=== PATIENT | female | born 1960 | race Caucasian/White ===

== ENCOUNTER 2016-12-16 01:16 | Emergency (ER) | payer MEDICAID ==
[~2016-12-16] VITALS: Ht 162.6 cm; Wt 100.0 kg
[~2016-12-16 01:16] MED LIST: COUM10TA PO; FOLI1TAB PO; MESA800 PO; METO10TA PO; ONDAN4 PO; PRED20 PO; SULF500T35 PO
[2016-12-16] MEDS ORDERED: MORPHINE SULFATE 4 MG/ML INJ IV PUSH ONE ×2 (01:30→03:30)
[2016-12-16] MEDS ORDERED: ONDANSETRON HCL 4 MG/2 ML VIAL IV PUSH ONE (01:30)
--- NOTE | 2016-12-16 01:30 | PD ---
HPI Chief Complaint: right leg pain Time Seen by Provider: 01:20 Travel History International Travel<30 days: No Contact w/Intl Traveler<30days: No Traveled to known affect area: No History of Present Illness HPI 56-year-old female presents via EMS for evaluation of right calf pain. The patient reports a history of ulcerative colitis for which she was on prednisone for 1.5 years. She weaned herself off the prednisone 2 months ago. 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 Lucero about this issue. Secondary to the avascular necrosis she tends to favor her right leg. She reports over the past week she has been having pain in her right calf. She describes it as an aching pain which is constant but worse with walking. She feels that the calf is swollen as well. She denies any trauma to the right calf. She denies any pain in the right ankle, the right foot, the right knee, the right thigh, the right hip. 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 She has tried using hydrocodone for pain with only mild relief. She reports chronic pain in her left hip, left proximal thigh. She is attempted to get an outpatient MRI ordered by Dr. Lucero but had difficulty lying still for it. No other complaints. PFSH Past Medical History Hx Anticoagulant Therapy: Yes Cancer: No Cardiovascular Problems: No Diminished Hearing: No Deep Vein Thrombosis: Yes Endocrine: No Gastrointestinal Disorders: Yes (ulcerative colitis) Genitourinary: No Immune Disorder: Yes (ulcerative colitis ) Musculoskeletal: No Neurologic: No Psychiatric: No Reproductive: No Respiratory: No Menopausal: Yes Ovarian Cysts: Yes Past Surgical History Gynecologic Surgery: Yes (right ovary/ right fallopian tube) Hysterectomy: Yes (STILL HAS UTERUS, BUT HAD SALPINGOOOPHORECTOMY R) Pacemaker: No Other Surgery: Yes Social History Alcohol Use: No Tobacco Use: No Substance Use: No Allergies-Medications (Allergen,Severity, Reaction): Coded Allergies: Latex (Verified Allergy, Intermediate, rash, 02/08/16) *MDRO Multi-Drug Resistant Organism (Verified Allergy, Unknown, 02/08/16) C-diff 11/2013 Codeine (Verified Adverse Reaction, Unknown, 02/08/16) Penicillin (Verified Adverse Reaction, Unknown, 02/08/16) Reported Meds & Prescriptions Reported Meds & Active Scripts Active Zofran (Ondansetron HCl) 4 Mg Tab 4 Mg PO Q6HR PRN Percocet (Oxycodone-Acetaminophen) 5-325 mg Tab 1 Tab PO Q6H PRN Reported Asacol HD (Mesalamine) 800 Mg Tab 800 Mg PO TID Swallow whole. Take on an empty stomach. Coumadin (Warfarin) 10 Mg Tab 10 Mg PO DAILY Coumadin (Warfarin) 10 Mg Tab 15 Mg PO DAILY Review of Systems Except as stated in HPI: all other systems reviewed are Neg Physical Exam Narrative GENERAL: Well-nourished female who appears uncomfortable. SKIN: Warm and dry. HEAD: Atraumatic. Normocephalic. EYES: Pupils equal and round. No scleral icterus. No injection or drainage. ENT: No nasal bleeding or discharge. Mucous membranes pink and moist. NECK: Trachea midline. No JVD. CARDIOVASCULAR: Regular rate and rhythm. No murmur appreciated. RESPIRATORY: No accessory muscle use. Clear to auscultation. Breath sounds equal bilaterally. GASTROINTESTINAL: Abdomen soft, non-tender, nondistended. MUSCULOSKELETAL: No obvious deformities. There is no lower extremity pitting edema. The patient has generalized tenderness to palpation to the right calf. The compartments of the right calf are soft with no evidence of compartment syndrome. 2+ dorsalis pedis and posterior tibial pulses. There is no tenderness to palpation to the right thigh, the right hip, right knee, right ankle, right foot. NEUROLOGICAL: Awake and alert. No obvious cranial nerve deficits. Motor grossly within normal limits. Normal speech. Data Data Last Documented VS Vital Signs Date Time Temp Pulse Resp B/P Pulse Ox O2 Delivery O2 Flow Rate FiO2 12/16/16 03:04 16 12/16/16 01:37 98.4 95 192/98 99 Orders Tibia/Fibula (Ap/Lat) (12/16/16 ) Us Leg Venous Doppler (12/16/16 01:26) Iv Access Insert/Monitor (12/16/16 01:26) Prothrombin Time / Inr (Pt) (12/16/16 01:26) Complete Blood Count With Diff (12/16/16 01:26) Basic Metabolic Panel (Bmp) (12/16/16 01:26) Morphine Inj (Morphine Inj) (12/16/16 01:30) Ondansetron Inj (Zofran Inj) (12/16/16 01:30) Morphine Inj (Morphine Inj) (12/16/16 03:30) Labs Laboratory Tests Test 12/16/16 02:00 White Blood Count 8.1 TH/MM3 Red Blood Count 4.45 MIL/MM3 Hemoglobin 13.1 GM/DL Hematocrit 38.1 % Mean Corpuscular Volume 85.6 FL Mean Corpuscular Hemoglobin 29.5 PG Mean Corpuscular Hemoglobin 34.5 % Concent Red Cell Distribution Width 14.0 % Platelet Count 268 TH/MM3 Mean Platelet Volume 8.8 FL Neutrophils (%) (Auto) 76.0 % Lymphocytes (%) (Auto) 15.4 % Monocytes (%) (Auto) 6.2 % Eosinophils (%) (Auto) 1.8 % Basophils (%) (Auto) 0.6 % Neutrophils # (Auto) 6.1 TH/MM3 Lymphocytes # (Auto) 1.2 TH/MM3 Monocytes # (Auto) 0.5 TH/MM3 Eosinophils # (Auto) 0.1 TH/MM3 Basophils # (Auto) 0.0 TH/MM3 CBC Comment DIFF FINAL Differential Comment Prothrombin Time 31.8 SEC Prothromb Time International 2.8 RATIO Ratio Sodium Level 140 MEQ/L Potassium Level 4.0 MEQ/L Chloride Level 105 MEQ/L Carbon Dioxide Level 27.7 MEQ/L Anion Gap 7 MEQ/L Blood Urea Nitrogen 18 MG/DL Creatinine 0.76 MG/DL Estimat Glomerular Filtration 78 ML/MIN Rate Random Glucose 110 MG/DL Calcium Level 8.9 MG/DL MDM Medical Decision Making Medical Screen Exam Complete: Yes Emergency Medical Condition: Yes Medical Record Reviewed: Yes Interpretation(s) CBC, BMP unremarkable, INR 2.8 Right leg ultrasound negative Tibia-fibula reveals mild degenerative changes of the right knee joint otherwise unremarkable Differential Diagnosis Right leg muscle strain, fracture, DVT, compartment syndrome, arterial occlusion , peripheral neuropathy, radiculopathy Narrative Course 56-year-old female with history of avascular necrosis left hip with resultant gait disturbance in which she favors her right leg presents now with increased pain in the right calf for the past week. On examination she has tenderness to palpation in the right calf but the compartments of the calf are soft with no evidence of a compartment syndrome, no evidence for hematoma. There is no lower extremity edema. She does have a history of DVT, on Coumadin. She reports that there has been difficulty regulating her INR levels. We will check her INR and basic lab work. X-ray of the right tibia/fibula and right leg ultrasound will be ordered. The patient will be given pain medication. The patient's lab work and imaging studies have been reviewed and found to be reassuring. Her INR is therapeutic at 2.8. Her right leg ultrasound and x-ray are normal. d/w my attending who agrees with plan. At this point in time the plan is to treat the patient doesn't outpatient with pain medicine. She is not currently using anything for pain control as an outpatient. She has an appointment with her primary care physician in 3 days and we discussed possibly having her follow up with pain management versus referral to a different orthopedist. She is also encouraged to use a walker at home as needed and she has a walker. She understands to return for any new or worsening symptoms. She is stable for discharge. Diagnosis Primary Impression: Right leg pain Additional Instructions: Follow-up with your primary care physician as scheduled in 3 days. Pain medication as needed. Do not drive or drink alcohol when taking this medication. Use walker as needed. Return for any emergent medical conditions. Med/Other Pt SpecificInfo: Prescription(s) given Scripts Ondansetron (Zofran)4 Mg Tab4 Mg PO Q6HR PRN (NAUSEA OR VOMITING) #15 TAB Ref 0 Prov:Teddy Levi MD 12/16/16 Oxycodone-Acetaminophen (Percocet)5-325 mg Tab1 Tab PO Q6H PRN (PAIN) #15 TAB Ref 0 Prov:Teddy Levi MD 12/16/16 Disposition: 01 DISCHARGE HOME Condition: Stable Manolo Rayo Dec 16, 2016 01:30 Manolo Rayo Dec 16, 2016 01:30
[2016-12-16 01:37] VITALS: BP 192/98; PULSE 95; RESP 16; TEMP 98.4; O2SAT 99
[2016-12-16] MEDS ORDERED: ASAC800T PO (01:40)
[2016-12-16] MEDS ORDERED: COUM10TA PO (01:40)
--- NOTE | 2016-12-16 02:11 | RADRPT ---
EXAM DATE/TIME: 12/16/2016 01:38 [facility] COMPARISON: No previous studies available for comparison. INDICATIONS : Right leg pain with no known trauma. MEDICAL HISTORY : Arthritis. SURGICAL HISTORY : None. ENCOUNTER: Initial ACUITY: 1 day PAIN SCORE: 10/10 LOCATION: Right leg FINDINGS: Two view examination of the right tibia demonstrates no evidence of fracture or dislocation. Bony mi neralization is normal. The soft tissue structures are intact. There is mild degenerative changes at the knee joint. CONCLUSION: Mild primary degenerative changes of the knee joint. Otherwise, unremarkable exam for patient's age. Rogers Wise MD on December 16, 2016 at 2:08 Board Certified Radiologist. This report was verified electronically.
[2016-12-16 02:16] LABS: AUTOMATED NEUTROPHIL # 6.1 TH/MM3 (1.8-7.7); BASOPHIL % 0.6 % (0.0-2.0); EOSINOPHIL # 0.1 TH/MM3 (0-0.4); EOSINOPHIL % 1.8 % (0.0-4.0); HEMATOCRIT 38.1 % (35.0-46.0); HEMO FLAGS DIFF FINAL; LYMPH % 15.4 % (9.0-44.0); LYMPHOCYTE # 1.2 TH/MM3 (1.0-4.8); MEAN CELL VOLUME 85.6 FL (80.0-100.0); MEAN CORPUSCULAR HEMOGLOBIN 29.5 PG (27.0-34.0); MEAN CORPUSCULAR HGB CONC 34.5 % (32.0-36.0); MONO % 6.2 % (0.0-8.0); PLATELET COUNT 268 TH/MM3 (150-450); RED BLOOD COUNT 4.45 MIL/MM3 (4.00-5.30); WHITE BLOOD COUNT 8.1 TH/MM3 (4.0-11.0)
[2016-12-16 02:21] LABS: INTERNATIONAL NORMALIZED RATIO 2.8 RATIO; PROTHROMBIN TIME - PATIENT 31.8 SEC (9.8-11.6)
[2016-12-16 02:41] LABS: BICARBONATE 27.7 MEQ/L (21.0-32.0)
--- NOTE | 2016-12-16 02:44 | RADRPT ---
EXAM DATE/TIME: 12/16/2016 02:11 [facility] COMPARISON: No previous studies available for comparison. [facility], US LEG, BILATERAL VENOUS INSUFFICIENCY, August 31, 2016 INDICATIONS : Right leg pain. MEDICAL HISTORY : Deep venous thrombosis. Ulcerative colitis. Anticoagulant therapy. SURGICAL HISTORY : Right salpingo-oophorectomy. ENCOUNTER: Subsequent ACUITY: 1 day PAIN SCORE: 10/10 LOCATION: Right leg. TECHNIQUE: Venous ultrasound of the leg was performed from the inguinal ligament to the proximal calf. Real-malathi e, color Doppler and spectral tracing, compression and augmentation techniques were used. FINDINGS: There is normal compressibility of the deep venous system from the inguinal region to the proximal ca lf. No echogenic clot is seen in the lumen of the common femoral, femoral, popliteal, and posterior tibial veins. There is a normal response of the venous system to proximal and distal augmentation an d respiration. CONCLUSION: No evidence of DVT. Rogers Wise MD on December 16, 2016 at 2:42 Board Certified Radiologist. This report was verified electronically.
[2016-12-16] MEDS ORDERED: ZOFR4TAB PO (03:13)
[2016-12-16] MEDS ORDERED: PERC5TAB12 PO (03:13)
[2016-12-16 03:39] VITALS: RESP 18
[2016-12-16 03:43] VITALS: BP 163/67; TEMP 98.2
== END 2016-12-16 06:52 | disposition home or self-care (01) ==
LOC: NEPB 01:16
DX: M79.661 Pain in right lower leg (principal); M25.552 Pain in left hip; G89.29 Other chronic pain; Z86.718 Personal history of other venous thrombosis and embolism; Z79.01 Long term (current) use of anticoagulants; I87.2 Venous insufficiency (chronic) (peripheral)
CPT/HCPCS: 73590; 80048; 85025; 85610; 93971; 96374; 96375; 96376; 99284; J2270; J2405